=== PATIENT | female | born 1965 | race Caucasian/White ===

== ENCOUNTER 2017-02-17 20:33 | Observation (INO) | payer OTHER ==
[2017-02-17] MEDS ORDERED: Zofran 4 MG/2 ML VIAL IV ONE (21:09)
[2017-02-17] MEDS ORDERED: MORPHINE SULFATE 4 MG INJ IV ONE (21:09)
[2017-02-17] MEDS ORDERED: Sodium Chloride 0.9% 1000 ML 1,000 ML IV STA (21:09)
--- NOTE | 2017-02-17 21:13 | ERPHSYRPT ---
- History of Present Illness Time Seen by Provider: 02/17/17 21:11 Historian: patient Exam Limitations: no limitations Physician History: 51-year-old white female arrives with complaint of abdominal bloating right lower quadrant tenderness and periumbilical tenderness symptoms last night patient denies nausea vomiting diarrhea melena or hematochezia. Patient did have a KUB which was ordered at the [facility] today which showed a scattered amount of the fecal debris no acute changes were noted. Patient states she continues to have pain especially in the right lower quadrant and periumbilical region. She does state that she has had similar pain in the past which went down after short period of time however this continues. Past medical history includes hypercholesterolemia and high blood pressure. Past surgical history includes 2 exploratory laparotomy tubal ligation. Timing/Duration: yesterday (last pm) Quality: cramping Abdominal Pain Onset Location: RLQ, periumbilical Pain Radiation: no radiation Severity of Pain-Max: moderate Severity of Pain-Current: moderate Modifying Factors: Improves With: nothing Associated Symptoms: No back, No chest pain, No diaphoresis, No diarrhea, No fever/chills, No fatigue, No headache, No heartburn, No loss of appetite, No nausea, No neck pain, No rash, No shortness of breath, No syncope, No vomiting, No weakness Previous symptoms: same symptoms as today Allergies/Adverse Reactions: No Known Drug Allergies Allergy (Unverified 02/17/17 21:22) Home Medications: Atorvastatin Calcium 1 tab DAILY 02/17/17 [History] Lisinopril 10 mg [Zestril 10 MG] 1 tab DAILY 02/17/17 [History] Omeprazole 20 MG [Prilosec 20 mg] 1 tab DAILY 02/17/17 [History] Venlafaxine HCl [Effexor Xr] 75 mg PO DAILY 02/17/17 [History] - Review of Systems Constitutional: No Fever, No Chills Eyes: No Symptoms Ears, Nose, & Throat: No Symptoms Respiratory: No Cough, No Dyspnea Abdominal/Gastrointestinal: Abdominal Pain, No Nausea, No Vomiting, No Diarrhea , No Constipation, No Hematemesis, No Hematochezia, No Melena, No Dysphagia, No Appetite Changes Genitourinary Symptoms: No Dysuria Musculoskeletal: No Back Pain, No Neck Pain Skin: No Rash Neurological: No Dizziness, No Focal Weakness, No Sensory Changes Psychological: No Symptoms Endocrine: No Symptoms All Other Systems: Reviewed and Negative - Past Medical History Cardiac History: High Cholesterol, Hypertension - Past Surgical History Female Surgical History: Section, Tubal Ligation, Other (exploratory laparotomy) - Nursing Vital Signs Nursing Vital Signs: Initial Vital Signs Temperature 99.3 F Temperature Source Oral Pulse Rate 83 Respiratory Rate 16 Blood Pressure [Right Arm] 110/71 Pain Intensity 7 - Physical Exam General Appearance: mild distress Eye Exam: PERRL/EOMI, eyes nml inspection Ears, Nose, Throat Exam: normal ENT inspection, pharynx normal, moist mucous membranes Neck Exam: normal inspection, non-tender, supple, full range of motion Respiratory Exam: normal breath sounds, lungs clear, No respiratory distress Cardiovascular Exam: regular rate/rhythm, normal heart sounds Gastrointestinal/Abdomen Exam: soft, normal bowel sounds, tenderness (right lower quadrant tenderness with palpation), other (mildly distended) Back Exam: normal inspection, normal range of motion, No CVA tenderness, No vertebral tenderness Extremity Exam: normal inspection, normal range of motion, pelvis stable Neurologic Exam: alert, oriented x 3, cooperative, normal mood/affect, nml cerebellar function, sensation nml, No motor deficits Skin Exam: normal color, warm, dry SpO2 Interpretation: normal - Course Nursing assessment & vital signs reviewed: Yes - CT Exams Abdomen/Pelvis CT Interpretation: Tele-radiologist Report (CT of the abdomen and pelvis with contrast: Impression: 1. Findings most consistent with acute uncomplicated appendicitis no evidence of perforation or periappendiceal abscess.) Ordered Tests: Active Orders 24 hr Category Date Time Status Clean Catch Urine Specimen STAT Care 02/17/17 21:41 Active IV Insertion STAT Care 02/17/17 21:09 Active ABDOMEN AND PELVIS W CONTRAST [CT] Stat Exams 02/17/17 22:15 Taken AMYLASE Stat Lab 02/17/17 21:15 Completed CBC W DIFF Stat Lab 02/17/17 21:15 Completed CMP Stat Lab 02/17/17 21:15 Completed HCG, Quantitative (Inhouse) Stat Lab 02/17/17 21:15 Completed LIPASE Stat Lab 02/17/17 21:15 Completed UA W/ MICROSCOPIC Stat Lab 02/17/17 21:15 Completed Medication Summary Generic Name Dose Route Start Last Admin Trade Name Freq PRN Reason Stop Dose Admin Piperacillin Sod/Tazobactam Sod 100 mls @ 100 mls/hr 02/17/17 23:57 Zosyn 3.375gm/100 Ml D5w IV 02/18/17 00:56 STAT ONE Discontinued Medications Generic Name Dose Route Start Last Admin Trade Name Robel PRN Reason Stop Dose Admin Sodium Chloride 1,000 mls @ 999 mls/hr 02/17/17 21:09 02/17/17 21:44 Sodium Chloride 0.9% 1000 Ml IV 02/17/17 22:09 999 mls/hr .Q1H1M STA Administration Sodium Chloride Confirm 02/17/17 21:42 Sodium Chloride 0.9% 1000 Ml Administered 02/17/17 21:43 Dose 1,000 mls @ ud .ROUTE .STK-MED ONE Morphine Sulfate 4 mg 02/17/17 21:09 02/17/17 21:46 Morphine Sulfate 4 Mg Inj IV 02/17/17 21:10 4 mg STAT ONE Administration Morphine Sulfate Confirm 02/17/17 21:41 Morphine Sulfate 4 Mg Inj Administered 02/17/17 21:42 Dose 4 mg .ROUTE .STK-MED ONE Ondansetron HCl 4 mg 02/17/17 21:09 02/17/17 21:46 Zofran 4 Mg/2 Ml Vial IV 02/17/17 21:10 4 mg STAT ONE Administration Ondansetron HCl Confirm 02/17/17 21:41 Zofran 4 Mg/2 Ml Vial Administered 02/17/17 21:42 Dose 4 mg .ROUTE .STK-MED ONE Lab/Rad Data: Laboratory Result Diagrams 02/17/17 21:15 02/17/17 21:15 Laboratory Results 02/17/17 02/17/17 02/17/17 Range/Units 21:15 21:15 21:15 WBC 11.7 H (4.0-10.5) K/mm3 RBC 3.86 L (4.1-5.4) M/mm3 Hgb 12.0 (12.0-16.0) gm/dl Hct 37.5 (35-47) % MCV 97.2 (78-100) fl MCH 31.0 (26-32) pg MCHC 32.0 (32-36) g/dl RDW 12.4 (11.5-14.0) % Plt Count 246 (150-450) K/mm3 MPV 8.6 (6-9.5) fl Gran % 71.5 H (36.0-66.0) % Lymphocytes % 19.5 L (24.0-44.0) % Monocytes % 7.9 (0.0-12.0) % Eosinophils % 1.0 (0.00-5.0) % Basophils % 0.1 (0.0-0.4) % Basophils # 0.01 (0-0.4) Sodium 144 (136-145) mEq/L Potassium 3.9 (3.5-5.1) mEq/L Chloride 105 (98-107) mEq/L Carbon Dioxide 30.5 (21-32) mEq/L Anion Gap 12.4 (5-15) MEQ/L BUN 14 (9-20) mg/dL Creatinine 0.76 (0.55-1.30) mg/dl Estimated GFR > 60 ML/MIN Glucose 113 H (70-110) MG/DL Calcium 9.2 (8.5-10.1) mg/dL Total Bilirubin 0.3 (0.2-1.0) mg/dL AST 19 (15-37) U/L ALT 28 (12-78) U/L Alkaline Phosphatase 74 (46-116) U/L Serum Total Protein 7.3 (6.4-8.2) gm/dL Albumin 3.5 (3.4-5.0) g/dL Amylase 37 (25-115) U/L Lipase 165 (73-393) U/L Beta HCG, Quant 2 (0-6) IU/L Ur Collection Type CLEAN CATCH Urine Color YELLOW (YELLOW) Urine Appearance CLEAR (CLEAR) Urine pH 6.5 (5-6) Ur Specific [place] 1.020 (1.005-1.025) Urine Protein NEGATIVE (Negative) Urine Glucose (UA) NEGATIVE (NEGATIVE) mg/dL Urine Ketones NEGATIVE (NEGATIVE) Urine Nitrite NEGATIVE (NEGATIVE) Urine Bilirubin NEGATIVE (NEGATIVE) Urine Urobilinogen 0.2 (0-1) mg/dL Urine WBC (Auto) SMALL (NEGATIVE) Urine RBC (Auto) SMALL (0-5) Nik/ul Urine Microscopic RBC 2-5 (0-2) /HPF Urine Microscopic WBC 2-5 (0-5) /HPF Ur Epithelial Cells RARE (FEW) /HPF Urine Bacteria FEW (NEGATIVE) /HPF Specimen Received 02/17/17:2114 - Progress Progress: improved Progress Note: 02/18/17 00:04 51-year-old white female with history of hypertension and hypercholesterolemia. 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 Patient has an elevated white count of 11.7 hemoglobin 12 hematocrit 37.5 chemistries essentially normal urine shows 2-5 red cells and 2-5 white cells per high-power field CT of the abdomen shows findings most consistent with acute uncomplicated appendicitis. There is no evidence of perforation or periappendiceal abscess. I've discussed the case with Dr. Aguiar he requested the patient receive Zosyn to be kept nothing by mouth with possible surgery in the morning he did state he would like he family to see patient prior to surgery of discussed the case with Dr. hoffman who is on-call for Dr. Glass, she is agreeable with the patient's care will place on observation nothing by mouth IV fluids and Zosyn morphine for pain Zofran for nausea and vomiting. - Departure Time of Disposition: 00:07 Departure Disposition: Observation Clinical Impression: Right lower quadrant abdominal pain Acute appendicitis Qualifiers: Acute appendicitis type: unspecified acute appendicitis type Qualified Code(s) : K35.80 - Unspecified acute appendicitis Condition: Fair Critical Care Time: No
[2017-02-17 21:29] LABS: BASOPHIL % 0.1 % (0.0-0.4); Granulocytes % 71.5 % (36.0-66.0); Lymphocytes % 19.5 % (24.0-44.0); Mean Cell Volume 97.2 fl (78-100); Mean Platelet Volume 8.6 fl (6-9.5); Monocytes % 7.9 % (0.0-12.0); Platelet Count 246 K/mm3 (150-450); Red Blood Count 3.86 M/mm3 (4.1-5.4); Red Cell Distribution Width 12.4 % (11.5-14.0); White Blood Count 11.7 K/mm3 (4.0-10.5)
[2017-02-17 21:38] LABS: Collection Type CLEAN CATCH; Ph 6.5 (5-6)
[2017-02-17 21:39] LABS: Bacteria FEW /HPF (NEGATIVE); COMPLETE URINE MICROSCOPIC? YES; Epithelial Cells RARE /HPF (FEW)
[2017-02-17] MEDS ORDERED: Zofran 4 MG/2 ML VIAL ONE (21:41)
[2017-02-17] MEDS ORDERED: MORPHINE SULFATE 4 MG INJ ONE (21:41)
[2017-02-17] MEDS ORDERED: Sodium Chloride 0.9% 1000 ML 1,000 ML ONE (21:42)
[2017-02-17 21:56] LABS: ALBUMIN 3.5 g/dL (3.4-5.0); ALKALINE PHOSPHATASE 74 U/L (46-116); ANION GAP 12.4 MEQ/L (5-15); BILIRUBIN,TOTAL 0.3 mg/dL (0.2-1.0); BLOOD UREA NITROGEN 14 mg/dL (9-20); CHLORIDE 105 mEq/L (98-107); Carbon Dioxide 30.5 mEq/L (21-32); Glucose 113 MG/DL (70-110); HCG, Quantitative (Inhouse) 2 IU/L (0-6); LIPASE 165 U/L (73-393); Potassium 3.9 mEq/L (3.5-5.1); SGOT/AST 19 U/L (15-37); SGPT/ALT 28 U/L (12-78); SODIUM 144 mEq/L (136-145); Total Protein 7.3 gm/dL (6.4-8.2)
[2017-02-17] MEDS ORDERED: Zosyn 3.375GM/100 Ml D5W 100 ML IV ONE (23:57)
[2017-02-18] MEDS ORDERED: Zosyn 3.375GM/100 Ml D5W 100 ML IV ONE (00:21)
[2017-02-18] MEDS ORDERED: MORPHINE SULFATE 4 MG INJ IV PRN ×2 (00:56→07:44)
[2017-02-18] MEDS ORDERED: Zofran 4 MG/2 ML VIAL IV PRN ×2 (00:56→07:46)
[2017-02-18] MEDS: Sodium Chloride 0.9% W/ 20 mEq KCl/LITER 1,000 ML IV SCH (01:29)
[2017-02-18] MEDS ORDERED: Lactated Ringers 1,000 ML IV ONE ×2 (04:09→04:52)
[2017-02-18] MEDS ORDERED: Pepcid 20 MG VIAL IV ONE ×2 (04:10→04:32)
[2017-02-18] MEDS ORDERED: MEFOXIN 2 GM PREMIX** 50 ML IV ONE (04:10)
[2017-02-18] MEDS ORDERED: Sensorcaine 0.25% 10 ML ONE (04:52)
[2017-02-18 05:43] LABS: BASOPHIL % 0.1 % (0.0-0.4); Eosinophil % 1.2 % (0.00-5.0); Granulocytes % 59.4 % (36.0-66.0); Lymphocytes % 30.2 % (24.0-44.0); Mean Cell Volume 97.9 fl (78-100); Mean Platelet Volume 8.9 fl (6-9.5); Monocytes % 9.1 % (0.0-12.0); Platelet Count 240 K/mm3 (150-450); Red Blood Count 3.73 M/mm3 (4.1-5.4); Red Cell Distribution Width 12.6 % (11.5-14.0); White Blood Count 9.4 K/mm3 (4.0-10.5)
[2017-02-18 05:49] LABS: Mean Corpuscular Hemoglobin 30.5 pg (26-32)
[2017-02-18 05:54] LABS: ANION GAP 12.4 MEQ/L (5-15); BLOOD UREA NITROGEN 12 mg/dL (9-20); CHLORIDE 108 mEq/L (98-107); Carbon Dioxide 27.1 mEq/L (21-32); Glucose 101 MG/DL (70-110); SODIUM 144 mEq/L (136-145)
[2017-02-18 06:20] LABS: INR 0.96 (0.8-3.0); PROTIME 10.8 SECONDS (9.95-12.35)
[2017-02-18] MEDS ORDERED: DILAUDID 2 MG INJECTION ONE (06:21)
[2017-02-18 06:23] LABS: PTT 30.7 SECONDS (25.3-37.0)
[2017-02-18] MEDS ORDERED: TYLENOL 325 MG PO PRN (07:47)
[2017-02-18] MEDS ORDERED: Zofran 4 MG/2 ML VIAL IV ONE (08:00)
[2017-02-18] MEDS ORDERED: DIPRIVAN 200 MG/20 ML IV ONE (08:00)
[2017-02-18] MEDS ORDERED: Decadron 4 MG INJ IV ONE (08:00)
[2017-02-18] MEDS ORDERED: SUBLIMAZE 100 MCG/2 ML IV ONE (08:00)
[2017-02-18] MEDS ORDERED: BRIDION 200MG/2ML IV ONE (08:00)
[2017-02-18] MEDS ORDERED: Zemuron 100 MG/10 ML IV ONE (08:00)
[2017-02-18] MEDS ORDERED: Quelicin Fliptop 200 MG/10 ML IV ONE (08:00)
[2017-02-18] MEDS: Zestril 10 MG PO SCH (08:22)
[2017-02-18] MEDS: Effexor XR 75 MG PO SCH (08:22)
[2017-02-18] MEDS: Zosyn 3.375GM/100 Ml D5W 100 ML IV SCH ×3 (08:22→18:20)
--- NOTE | 2017-02-18 08:22 | CONS ---
CONSULT DATE: 02/18/17 HISTORY OF PRESENT ILLNESS: The patient is a 51 y/o female who had a history of abdominal pain more localized to the right lower abdomen. Apparently, started Thursday. She had a KUB. Didn't show too much. Pain persisted, so she had a CT scan last night. The radiologist felt it was consistent with inflamed appendix. WBC 11.7, Hgb 12, platelets 246,000. PAST MEDICAL HISTORY: Hypercholesterolemia, hypertension. PAST SURGICAL HISTORY: She had a X 2 in the past. She had diagnostic laparoscopy and had a tubal in the past. HOME MEDICATIONS: Effexor, omeprazole, lisinopril, atorvastatin. ALLERGIES: NKDA. FAMILY HISTORY: Negative for Crohn's disease or cancer. SOCIAL HISTORY: No smoking. Reports rare alcohol use. No abuse. REVIEW OF SYSTEMS: 12 systems reviewed per admission assessment. No current chest pain or palpitations. No N/V or bloody stools. Other systems negative or noncontributory other than above and per preadmission questionnaire. PHYSICAL EXAMINATION: GENERAL: No acute distress. HEENT: Sclerae nonicteric. NECK: No JVD. CHEST: Equal excursion. Nonlabored breathing. CVS: Regular rate and rhythm. ABDOMEN: Soft. Some tenderness in the right lower abdomen. No rebound. Maybe just trace guarding. EXTREMITIES: No edema. NEURO: Alert, moving extremities grossly symmetrically. No gross motor deficits noted. IMPRESSION: 1. ACUTE RIGHT LOWER QUADRANT PAIN. History of CT scan findings suspicious for acute appendicitis. [place] she would benefit from diagnostic laparoscopy, laparoscopic appendectomy, possible open when OR time available. Risks and benefits explained in detail, but not limited to, bleeding; infection; risk of trocar injury or hernia; small risk of bowel, bladder, or blood vessel injury; small risk of subsequent intraabdominal abscess or fistula formation possibly requiring percutaneous or open drainage even at a later date; general risk of anesthesia, deep vein thrombosis, pulmonary embolism, or pneumonia; risk of finding a normal appendix likely incidentally look for other etiology that might need taken care of surgically. Will proceed with diagnostic laparoscopy, laparoscopic appendectomy, possible open when OR time available. Thank you for the consult.
[2017-02-18] MEDS: Protonix 40MG Tablet PO SCH (08:23)
[2017-02-18] MEDS: NORCO 5/325 MG PO PRN ×3 (08:32→18:09)
--- NOTE | 2017-02-18 08:35 | OP ---
THIS REPORT WAS AMENDED ON 02/20/17. SURGERY DATE: 02/18/17 SURGERY TIME: 521 PREOPERATIVE DIAGNOSIS: 1. ACUTE APPENDICITIS. POSTOPERATIVE DIAGNOSIS: 1. ACUTE APPENDICITIS. PROCEDURE: 1. LAPAROSCOPIC APPENDECTOMY. SURGEON: Dr. Mono Aranda. ANESTHESIA: General. ESTIMATED BLOOD LOSS: Less than 50 cc. INDICATIONS: As noted above. Risks and benefits explained in detail, but not limited to. Consent was obtained. DESCRIPTION OF PROCEDURE AND FINDINGS: The patient was taken to the OR. General anesthesia was induced. The abdomen prepped and draped in the usual sterile fashion. After official time-out, no disagreement in planned procedure. Transverse incision made at the supraumbilical area. Fascia grasped and pulled up. Veress needle inserted. Tested with saline. Pneumoperitoneum accomplished insufflating from an open pressure of 0-15. A 5 mm bladeless port and camera inserted without difficulty followed by a lower midline 5 mm port and right mid abdomen 12 mm port. She had a few adhesions from her past surgeries that were taken down off the lateral sidewall allowing the dilated, distended appendix consistent with acute appendicitis and the cecum being mobilized upward. Once this was accomplished, the EndoGIA stapler with the vargas reload was fired on the base of the cecum. Sequential reload was fired across the mesoappendix. It should be noted that she was quite friable and every time we manipulated her staple, she had some pulsatile oozing from the staple line. This required placing 2 or 3 extra clip appliers on the staple line itself and an additional staple on the residual mesoappendix. The appendix was placed in a Pleatman's sac, pulled out, and passed off. Port was replaced. A copious amount of irrigation accomplished. Given the raw nature and the oozing nature of the patient, a small piece of Surgicel was left on the staple line. It appeared to have good hemostasis at this point. Because she had had such brisk oozing, a PT/INR was ordered for completeness. The patient had not reported taking any blood thinners and the nurse had not reported giving the patient any blood thinners. Appeared to have adequate hemostasis. A small piece of Surgicel was left on the staple line in the mesoappendix and cecal staple lines. KELL drain was left given the appendicitis, a KELL drain was left in the right lower quadrant out through the inferior 5 mm port site. Secured with PDS suture. Placed to bulb suction. A copious amount of irrigation irrigating clear. She appeared to have adequate hemostasis at this point. The patient tolerated the procedure well. At this point, fascial defect right mid abdomen 12 mm port site was closed with puncture closure device under direct vision of the camera with #1 Vicryl. Pneumoperitoneum decompressed. Wounds irrigated out. Skin incisions closed with 4-0 Vicryl. Steri-strips and sterile dressing applied. 0.25% Marcaine local had been injected along each skin incision and fascial defect. Patient tolerated the procedure well. There were no immediate complications. Findings discussed with the family out in the waiting area including the fact that she had been real raw there is a real chance of some delayed oozing or bleeding, but at this time, she appeared to have adequate hemostasis.
--- NOTE | 2017-02-18 08:52 | PCM.HP ---
History of Present Illness - Chief Complaint Chief Complaint: appendicitis History of Present Illness: is a 51 year old female who presented to ER, she reports a 2 days history of generalized abdominal pain that had worsened until last night. She had no complaints of fever, no melena, nausea or vomiting. Her pain was generalized and periumbilical and appeared to settle in the right lower quadrant. - Review of Systems Constitutional: No Fever, No Chills Respiratory: No Cough, No Short Of Breath Cardiac: No Chest Pain, No Edema, No Syncope Abdominal/Gastrointestinal: Abdominal Pain, No Nausea, No Vomiting, No Diarrhea Skin: No Rash All Other Systems: Reviewed and Negative Medications & Allergies Home Medications: Home Medication List Atorvastatin Calcium 1 tab DAILY 02/17/17 [History Confirmed 02/17/17] Lisinopril 10 mg [Zestril 10 MG] 1 tab DAILY 02/17/17 [History Confirmed 02/17/17] Omeprazole 20 MG [Prilosec 20 mg] 1 tab DAILY 02/17/17 [History Confirmed ] Venlafaxine HCl [Effexor Xr] 75 mg PO DAILY 02/17/17 [History Confirmed 02/17/17 ] Zolpidem Tartrate [Ambien] 1 tab HS 02/18/17 [History Confirmed 02/18/17] Allergies/Adverse Reactions: Allergies Allergy/AdvReac Type Severity Reaction Status Date / Time No Known Drug Allergies Allergy Unverified 02/17/17 21:22 - Past Medical History Past Medical History: Yes Neurological History: No Pertinent History ENT History: No Pertinent History Cardiac History: High Cholesterol, Hypertension Respiratory History: No Pertinent History Endocrine Medical History: No Pertinent History Musculoskelatal History: No Pertinent History GI Medical History: GERD History: No Pertinent History Pyscho-Social History: Depression Reproductive Disorders: Endometriosis - Female History Hx Last Menstrual Period: 4 yres Are you now?: No - Past Surgical History Past Surgical History: Yes Neuro Surgical History: No Pertinent History Cardiac History: No Pertinent History Respiratory Surgery: No Pertinent History GI Surgical History: No Pertinent History Genitourinary Surgical Hx: No Pertinent History Musculskeletal Surgical Hx: No Pertinent History Female Surgical History: Section, Tubal Ligation, Other Other Surgical History: lap surgery for endormetriosis - Social History Smoking Status: Never smoker Exposure to second hand smoke: No Alcohol: Rarely Drug Use: none - Physical Exam Vital Signs: Vital Signs - 24 hr Temp Pulse Resp BP Pulse Ox 02/18/17 08:18 97.7 F 87 18 110/63 93 L 02/18/17 08:08 84 16 92 L 02/18/17 07:45 98 F 84 18 113/67 91 L 02/18/17 07:30 98.3 F 84 17 115/69 90 L 02/18/17 04:54 98.5 F 85 18 95 02/18/17 04:30 98.5 F 85 18 95 02/18/17 04:00 98.1 F 72 16 115/67 97 02/18/17 01:44 98.5 F 85 18 95 02/18/17 01:05 98.5 F 85 18 117/66 95 02/18/17 00:30 98.4 F 84 16 112/74 97 02/17/17 22:22 83 16 110/71 95 02/17/17 21:16 99.3 F 72 16 130/70 97 Oxygen-Last 24 hours O2 Percentage 3 Liters = 32% O2 Percentage 3 Liters = 32% O2 Percentage 3 Liters = 32% General Appearance: no apparent distress, alert Respiratory Exam: normal breath sounds Cardiovascular Exam: regular rate/rhythm, normal heart sounds, normal peripheral pulses Gastrointestinal/Abdomen Exam: soft, other (dressing c/d/i, serous fluid present in KELL drain, blood tinged), No distention, No mass, No guarding Extremity Exam: normal inspection, normal range of motion, pelvis stable Skin Exam: normal color, warm, dry, No rash Results - Labs Lab/Micro Results: Lab Results-Last 24 Hours 02/18/17 02/18/17 02/18/17 Range/Units 05:10 05:13 05:13 WBC 9.4 (4.0-10.5) K/mm3 RBC 3.73 L (4.1-5.4) M/mm3 Hgb 11.4 L (12.0-16.0) gm/dl Hct 36.5 (35-47) % MCV 97.9 (78-100) fl MCH 30.5 (26-32) pg MCHC 31.2 L (32-36) g/dl RDW 12.6 (11.5-14.0) % Plt Count 240 (150-450) K/mm3 MPV 8.9 (6-9.5) fl Gran % 59.4 (36.0-66.0) % Lymphocytes % 30.2 (24.0-44.0) % Monocytes % 9.1 (0.0-12.0) % Eosinophils % 1.2 (0.00-5.0) % Basophils % 0.1 (0.0-0.4) % Basophils # 0.01 (0-0.4) INR 0.96 (0.8-3.0) PTT 30.7 (25.3-37.0) SECONDS Sodium 144 (136-145) mEq/L Potassium 4.0 (3.5-5.1) mEq/L Chloride 108 H (98-107) mEq/L Carbon Dioxide 27.1 (21-32) mEq/L Anion Gap 12.4 (5-15) MEQ/L BUN 12 (9-20) mg/dL Creatinine 0.77 (0.55-1.30) mg/dl Estimated GFR > 60 ML/MIN Glucose 101 (70-110) MG/DL Calcium 8.5 (8.5-10.1) mg/dL - Other Procedures and Tests Respiratory Therapy 02/18/17 07:00 Incentive Spirometry Assessmen TID 02/18/17 07:49 Oxygen NASAL CANNULA 3 lpm Assessment/Plan (1) Acute appendicitis Current Visit: Yes Status: Acute Qualifiers: Acute appendicitis type: unspecified acute appendicitis type Qualified Code (s): K35.80 - Unspecified acute appendicitis Assessment & Plan: patient on zosyn, per operative note had some oozing after removal so will need to monitor KELL output closely. patient appears stable at this time. Code(s): K35.80 - UNSPECIFIED ACUTE APPENDICITIS (2) Essential hypertension Current Visit: Yes Status: Acute Assessment & Plan: continue lisinopril at this time. Code(s): I10 - ESSENTIAL (PRIMARY) HYPERTENSION (3) Hyperlipidemia Current Visit: Yes Status: Acute Code(s): E78.5 - HYPERLIPIDEMIA, UNSPECIFIED
--- NOTE | 2017-02-18 09:00 | XRAY ---
Indication: Abdominal pain and bloating. Multiple contiguous axial images obtained through the abdomen and pelvis using 80 cc Isovue 370 contrast only. Comparison: None. Lung bases demonstrates bibasilar dependent atelectasis. Heart is not enlarged. Small hiatal hernia. Noncontrasted stomach and bowel loops appear nonobstructed. Mild diffuse scattered colonic fecal debris throughout. Appendix is prominent up to 15 mm in diameter with wall thickening and periappendiceal stranding consistent with acute appendicitis. Small pelvic free fluid. No walled off fluid collection or free air. Bilateral tubal ligation rings. Remaining liver, gallbladder, pancreas, spleen, adrenal glands, kidneys, ureters, bladder, and uterus appear unremarkable. Abdominal aorta is normal in course and caliber. No AAA or pathologic retroperitoneal lymphadenopathy. Osseous structures intact. Impression: CT findings as detailed favoring acute appendicitis. Tiny pelvic free fluid presumed reactive but no walled off fluid collection or free air. Small hiatal hernia. Comment: Preliminary interpretation was made by [facility]. No critical discrepancy. CT DI 16.70
[2017-02-18] MEDS ORDERED: NON-FORMULARY ITEM (Atorvastatin Calcium [Atorvastatin Calcium] 1 TAB) PO SCH (10:00)
[2017-02-18] MEDS ORDERED: NON-FORMULARY ITEM (Omeprazole 20 Mg [Prilosec 20 Mg] 1 TAB) PO SCH (10:00)
[2017-02-18] MEDS: Ambien 10 MG PO SCH (20:59)
[2017-02-18] MEDS: Zocor 10MG PO SCH (20:59)
[2017-02-18] MEDS: D5W/0.45NS W/ 20mEq KCl 1000 ML 1,000 ML IV SCH (20:59)
[2017-02-19] MEDS: NORCO 5/325 MG PO PRN ×4 (00:53→21:10)
[2017-02-19] MEDS: Zosyn 3.375GM/100 Ml D5W 100 ML IV SCH ×5 (00:54→23:16)
[2017-02-19 05:35] LABS: Mean Cell Volume 99.4 fl (78-100); Mean Platelet Volume 8.8 fl (6-9.5); Platelet Count 229 K/mm3 (150-450); Red Blood Count 3.11 M/mm3 (4.1-5.4); Red Cell Distribution Width 12.4 % (11.5-14.0); White Blood Count 12.2 K/mm3 (4.0-10.5)
[2017-02-19 05:45] LABS: Mean Corpuscular Hemoglobin 31.1 pg (26-32)
--- NOTE | 2017-02-19 07:44 | PCM.NOTE ---
Date and Time: 02/19/17742 Subjective Assessment: patient had some low oxygen sats yesterday and overnight, requiring oxygen. has some cough and congestion. using IS, tolerating po, no nausea or vomiting Objective Exam General Appearance: no apparent distress, alert Respiratory Exam: rhonchi, No respiratory distress, No accessory muscle use, No wheezing Cardiovascular Exam: regular rate/rhythm, normal heart sounds Gastrointestinal/Abdomen Exam: soft, No tenderness, No mass Extremity Exam: normal inspection, normal range of motion OBJECTIVE DATA Vital Signs: Vital Signs - 24 hr Temp Pulse Resp BP Pulse Ox 02/19/17 07:17 98.2 F 70 17 93/53 95 02/19/17 03:00 98.3 F 68 14 110/63 91 L 02/19/17 00:00 17 02/18/17 23:00 98.4 F 84 16 120/70 89 L 02/18/17 20:00 17 02/18/17 19:55 92 L 02/18/17 19:48 92 H 18 92 L 02/18/17 19:00 98.5 F 93 H 17 105/59 94 L 02/18/17 15:15 94 L 02/18/17 15:00 98.7 F 85 20 105/59 93 L 02/18/17 13:52 96 02/18/17 11:23 98.4 F 86 20 105/70 93 L 02/18/17 10:59 95 02/18/17 10:20 98 F 87 20 111/65 96 02/18/17 09:18 98.3 F 96 H 18 109/58 93 L 02/18/17 08:45 98.5 F 88 18 121/79 95 02/18/17 08:18 97.7 F 87 18 110/63 93 L 02/18/17 08:08 84 16 92 L 02/18/17 07:45 98 F 84 18 113/67 91 L Oxygen-Last 24 hours O2 Percentage 2 Liters = 28% O2 Percentage 2 Liters = 28% O2 Percentage 2 Liters = 28% O2 Percentage 3 Liters = 32% O2 Percentage 3 Liters = 32% O2 Percentage 3 Liters = 32% O2 Percentage 3 Liters = 32% O2 Percentage 3 Liters = 32% Pain Assessment - Last Documented Pain Intensity 4 Pain Scale Used 0-10 Pain Scale Intake and Output: Intake & Output 02/16/17 02/17/17 02/18/17 02/19/17 11:59 11:59 11:59 11:59 Intake Total 120 2810 Output Total 45 Balance 120 2765 Weight 73.028 kg Lab Results: Lab Results-Last 24 Hours 02/19/17 Range/Units 05:20 WBC 12.2 H (4.0-10.5) K/mm3 RBC 3.11 L (4.1-5.4) M/mm3 Hgb 9.7 L (12.0-16.0) gm/dl Hct 30.9 L (35-47) % MCV 99.4 (78-100) fl MCH 31.1 (26-32) pg MCHC 31.4 L (32-36) g/dl RDW 12.4 (11.5-14.0) % Plt Count 229 (150-450) K/mm3 MPV 8.8 (6-9.5) fl Radiology Exams: Radiology Procedures Category Date Time Status CHEST 1 VIEW (PORTABLE) Urgent Exams 02/19/17 07:43 Ordered Assessment/Plan (1) Acute appendicitis Current Visit: Yes Status: Acute Qualifiers: Acute appendicitis type: unspecified acute appendicitis type Qualified Code (s): K35.80 - Unspecified acute appendicitis Code(s): K35.80 - UNSPECIFIED ACUTE APPENDICITIS (2) Essential hypertension Current Visit: Yes Status: Acute Code(s): I10 - ESSENTIAL (PRIMARY) HYPERTENSION (3) Hyperlipidemia Current Visit: Yes Status: Acute Code(s): E78.5 - HYPERLIPIDEMIA, UNSPECIFIED (4) Cough Current Visit: Yes Status: Acute Assessment & Plan: check chest xray with cough and hypoxia, encouraged IS Code(s): R05 - COUGH
--- NOTE | 2017-02-19 08:32 | XRAY ---
Indication: Cough and hypoxia. Comparison: May 07, 2008. Portable chest is underinflated without focal infiltrate, consolidation, or large effusion. Heart is not enlarged. Bony thorax intact. Impression: Nonacute underinflated chest.
[2017-02-19] MEDS: Protonix 40MG Tablet PO SCH (09:18)
[2017-02-19] MEDS: Effexor XR 75 MG PO SCH (09:18)
[2017-02-19] MEDS: Zestril 10 MG PO SCH (09:26)
[2017-02-19] MEDS: Sodium Chloride 0.9% W/ 20 mEq KCl/LITER 1,000 ML IV SCH ×3 (10:15→20:58)
[2017-02-19] MEDS ORDERED: PROVENTIL Solution 2.5 MG/0.5 ML IH SCH (11:00)
[2017-02-19] MEDS: PROVENTIL 2.5 MG/3 ML NEB IH SCH ×3 (11:04→18:51)
[2017-02-19] MEDS: D5W/0.45NS W/ 20mEq KCl 1000 ML 1,000 ML IV SCH ×2 (19:56→22:19)
[2017-02-19] MEDS: Zocor 10MG PO SCH (21:11)
[2017-02-19] MEDS: Ambien 10 MG PO SCH (21:11)
[2017-02-20] MEDS: Zosyn 3.375GM/100 Ml D5W 100 ML IV SCH (05:08)
[2017-02-20] MEDS: NORCO 5/325 MG PO PRN (05:08)
[2017-02-20] MEDS: PROVENTIL 2.5 MG/3 ML NEB IH SCH ×2 (06:28→11:01)
[2017-02-20 07:48] VITALS: PULSE 85
--- NOTE | 2017-02-20 08:22 | PCM.DS ---
Discharge Summary Date of Admission: 02/18/17 00:53 Admitting Physician: AIME PATINO Primary Care Provider: AIME PATINO Allergies Allergies No Known Drug Allergies Allergy (Unverified 02/17/17 21:22) Hospital Summary - Hospital Course Hospital Course: patient had lap appendectomy, drain was placed due to some oozing of staple line. had 30mL out of KELL drain overnight. tolerating po with no difficulty, cough has improved. she is ambulatory and has no complaints at time of discharge. - Vitals & Intake/Output Vital Signs: Vital Signs Temperature 98.7 F 02/20/17 07:47 Pulse Rate 85 02/20/17 07:47 Respiratory Rate 18 02/20/17 08:00 Blood Pressure 100/57 02/20/17 07:47 O2 Sat by Pulse Oximetry 90 L 02/20/17 07:47 Oxygen-Last Documented O2 Percentage 1 Liter = 24% Intake & Output: Intake & Output 02/17/17 02/18/17 02/19/17 02/20/17 11:59 11:59 11:59 11:59 Intake Total 120 3010 3399 Output Total 45 35 Balance 120 2965 3364 Weight 73.028 kg - Lab Result Diagrams: 02/19/17 05:20 02/18/17 05:13 - Radiology Exams Ordered Rad Exams-Entire Visit: Radiology Procedures Category Date Time Status CHEST 1 VIEW (PORTABLE) Urgent Exams 02/19/17 07:43 Completed - Procedures and Test Procedures and Tests throughout Hospitalization: Therapy Orders & Screens 02/18/17 07:00 Incentive Spirometry Assessmen TID Comment: I.S. TID Diagnosis: appendicitis 02/18/17 07:49 Oxygen NASAL CANNULA 3 lpm Comment: for O2 sat >93% Diagnosis: appendicitis Respiratory Therapy Consult ROUTINE Comment: Reason For Exam: Diagnosis: appendicitis 02/19/17 11:00 Respiratory Nebulizer QID Comment: ALBUTEROL QID Diagnosis: appendicitis Discharge Exam General Appearance: no apparent distress, alert Respiratory Exam: normal breath sounds, lungs clear, No respiratory distress Cardiovascular Exam: regular rate/rhythm, normal heart sounds Gastrointestinal/Abdomen Exam: soft, normal bowel sounds, other (KELL with serosang. fluid, dressings c/d/i), No tenderness, No distention Extremity Exam: normal inspection, normal range of motion Final Diagnosis/Problem List - Final Discharge Diagnosis/Problem (1) Acute appendicitis Current Visit: Yes Status: Acute (2) Essential hypertension Current Visit: Yes Status: Acute (3) Hyperlipidemia Current Visit: Yes Status: Acute (4) Cough Current Visit: Yes Status: Acute - Discharge Disposition: Home, Self-Care Condition: Good Prescriptions: New Albuterol Sulfate [Albuterol Sulfate Hfa] 2 puffs IH Q4-6HPRN PRN #1 [id number] PRN Reason: Cough Amoxicillin/Potassium Clav [Augmentin 500-125 Tablet] 1 each PO TID #30 tablet Hydrocodone Bit/Acetaminophen [Omena 5-325 Tablet] 1 tab PO Q4-6HPRN PRN #30 tablet PRN Reason: Pain Continue Venlafaxine HCl [Effexor Xr] 75 mg PO DAILY Atorvastatin Calcium 1 tab DAILY Lisinopril 10 mg [Zestril 10 MG] 1 tab DAILY Omeprazole 20 MG [Prilosec 20 mg] 1 tab DAILY Zolpidem Tartrate [Ambien] 1 tab HS Follow up with: AIME PATINO MD [Primary Care Provider] -
[2017-02-20] MEDS: Protonix 40MG Tablet PO SCH (10:12)
[2017-02-20] MEDS: Effexor XR 75 MG PO SCH (10:12)
[2017-02-20] MEDS: Zestril 10 MG PO SCH (10:12)
[2017-02-20 11:40] VITALS: BP 122/65; O2SAT 91
== END 2017-02-20 11:25 | disposition home or self-care (01) ==
LOC: ED 20:33 → MED SURG 02-18 00:53
PROVIDERS: ADMIT Family Medicine; ATTEND Family Medicine
PROC: 0DTJ4ZZ Resection of Appendix, Percutaneous Endoscopic Approach (ICD-10-PCS; principal; 2017-02-18)
DX: K35.80 Unspecified acute appendicitis (principal); I10 Essential (primary) hypertension; K21.9 Gastro-esophageal reflux disease without esophagitis; F32.9 Major depressive disorder, single episode, unspecified; N80.9 Endometriosis, unspecified; E78.5 Hyperlipidemia, unspecified; E78.00 Pure hypercholesterolemia, unspecified; R05 Cough; Z79.899 Other long term (current) drug therapy
CPT/HCPCS: 00840; 36000; 36415; 71010; 74177; 80048; 80053; 81000; 82150; 83690; 84702; 85025; 85027; 85610; 85730; 94640; 94760; 94762; 96360; 96365; 96374; 96375; 99140; 99285; G0378; J0330; J0694; J1100; J1170; J2270; J2405; J2543; J2704; J3010; A9270-GY

== ENCOUNTER 2018-05-03 08:25 | Day surgery (SDC) | payer OTHER ==
[~2018-05-03 08:25] MED LIST: Lactated Ringers 1,000 ML IV SCH
[2018-05-03] MEDS ORDERED: DIPRIVAN 200 MG/20 ML IV ONE (08:26)
--- NOTE | 2018-05-03 08:30 | HP ---
DATE OF SURGERY: 05/03/2018 HISTORY OF PRESENT ILLNESS: The patient is a 52 year-old choking a lot, cough sometimes with water slight improvement with Protonix and heartburn. No prior gallbladder work up. PAST MEDICAL HISTORY: Hypertension, some anxiety and depression, reflux. PAST SURGICAL HISTORY: Appendectomy. MEDICATIONS: Lisinopril, Effexor, Protonix. ALLERGIES: NKDA. FAMILY HISTORY: Hypertension, cancer. SOCIAL HISTORY: No alcohol abuse. REVIEW OF SYSTEMS: Twelve systems reviewed per admission assessment. No chest pain or palpitations other systems negative or noncontributory as above and per preadmission questionnaire. PHYSICAL EXAMINATION: GENERAL: No acute distress. HEENT: Sclerae nonicteric. NECK: No JVD. CHEST: Equal excursion, nonlabored breathing. CVS: Regular rate and rhythm. ABDOMEN: Soft. No peritoneal signs. EXTREMITIES: No significant edema. NEURO: Alert, oriented, moving extremities symmetrically. No gross motor deficits noted. IMPRESSION: Dysphagia upper esophagus, heartburn. I feel she would benefit from upper endoscopy possible biopsy possible dilatation. If negative may need to consider gallbladder work up or other studies. Risks and benefits explained in detail including but not limited to bleeding or infection, risk of bowel injury or perforation possibly requiring open procedure, risk of missed or nondiagnosis or incomplete exam possibly requiring other studies or procedures, possibility dilatation performed improves situation may need to be repeated again down the road or possibility dilatation may not improve her swallowing if it is more of a functional problem. She understands and agrees to the planned procedure as well as risk of bowel injury or perforation possibly requiring open procedure, ongoing morbidity/mortality. She understand and will proceed with outpatient EGD possible biopsy possible dilatation as an outpatient.
[2018-05-03] MEDS ORDERED: Lactated Ringers 1,000 ML IV ONE (08:31)
[2018-05-03 11:28] VITALS: O2SAT 98
[2018-05-03 11:54] VITALS: BP 115/71; PULSE 80
--- NOTE | 2018-05-04 09:38 | OP ---
SURGERY DATE/TIME: 05/03/2018 1035 PREOPERATIVE DIAGNOSIS: Dysphagia. POSTOPERATIVE DIAGNOSES: 1) Minimal to mild gastritis. 2) Gastric polyp. 3) Symptomatic proximal esophageal narrowing and spasm. PROCEDURES: 1) EGD with cold biopsy of the antrum to evaluate for Helicobacter pylori. 2) Cold biopsy gastric polyp. 3) Esophageal dilatation proximal esophagus (size 20 balloon). SURGEON: Dr. Mono Aranda. ANESTHESIA: MAC. ESTIMATED BLOOD LOSS: Minimal. INDICATIONS: As noted above. Risks and benefits explained in detail and not limited to and consent obtained. DESCRIPTION OF PROCEDURE AND FINDINGS: The patient is taken to the operating room. MAC anesthesia introduced. After official time out and no disagreement with planned procedure, a bite block positioned. Video gastroscope passed in the oropharynx. There appeared to be a proximal esophageal narrowing and spasm where she was having symptoms. It was felt she would benefit from dilatation in this area. The scope was able to be passed back through this area where it was felt to benefit from dilatation as she was having symptoms. The scope was passed back down through the gastroesophageal junction through the patent pylorus to the junction of second and third portion of duodenum. The duodenum and duodenal bulb grossly unremarkable. Back in the stomach she had some minimal to mild gastritis. Cold biopsy taken to evaluate for Helicobacter pylori. On retroflex there is no sign of any significant hiatal hernia. There are signs of some vascular polyps whether just fundal gland polyps or not these were removed with hot biopsy forceps with brief bursts of cautery. Good hemostasis noted. There were no signs of ulcers. No signs of other mucosal lesions other than the gastric polyps and minimal to mild gastritis. The scope pulled back to the gastroesophageal junction. Z-line was crisp noted at 40 cm. There were no signs of any obvious masses or mucosal lesions. The scope was carefully pulled back to the esophageal narrowed area where she was having symptoms. There were no signs of any mass or mucosal lesion to biopsy. There was however narrowed area that felt would benefit from dilatation as she is having symptoms. The scope passed back down in the stomach. Size 20 balloon dilator carefully passed in direct view of the scope then pulled back up to the narrowed area of proximal esophagus where it was gradually inflated. First stage size 18 for 45 seconds, size 19 for 45 seconds, final stage size 20 balloon dilator for 2 minutes. The balloon catheter was then released and withdrawn. The scope is more easily passed through this area, passed back down in the stomach and gradually withdrawn. There were no signs of any full thickness issues or injury secondary to dilatation. The patient tolerated the procedure well. There were no immediate complications. She did have a lot of spasm and if this failed to improve his swallowing mechanism she might need to consider swallowing evaluation or consider larger dilator. Findings discussed with the family out in the waiting area.
== END 2018-05-03 11:52 | disposition home or self-care (01) ==
LOC: SDC 08:25
PROVIDERS: ATTEND Surgery
DX: K29.70 Gastritis, unspecified, without bleeding (principal); K31.7 Polyp of stomach and duodenum; K22.2 Esophageal obstruction; K22.4 Dyskinesia of esophagus; I10 Essential (primary) hypertension; F41.8 Other specified anxiety disorders; K21.9 Gastro-esophageal reflux disease without esophagitis
CPT/HCPCS: 87081; C1726; J2704